=== PATIENT | female | born 1985 | race Caucasian/White ===

== ENCOUNTER 2019-05-02 10:45 | Emergency (ER) | payer OTHER, SELFPAY ==
[2019-05-02] MEDS ORDERED: Acetaminophen 500 MG TAB ONE (13:02)
[2019-05-02 13:16] LABS: Bilirubin Negative (Negative); Blood, Urine Negative (Negative); Clarity Clear (Clear); Glucose, Urine (Dipstick) Normal (Negative); Leukocyte Negative Leu/uL (Negative); Nitrite Negative (Negative); Protein, Urine (Dipstick) Negative (Neg-Trace); Urobilinogen Normal mg/dL (Less than 2)
[2019-05-02 13:17] LABS: Pregnancy Test - Urine (BHCG) Negative (Negative); Pregu Control Background? CLEAR/WHITE (CLR/WHITE); Pregu Control Bar Appear? YES (CONTROL BAR); Specific Gravity 1.009 (1.002-1.036)
[2019-05-02] MEDS ORDERED: Cyclobenzaprine 10 MG TAB ONE (13:35)
[2019-05-02] MEDS ORDERED: Ibuprofen 200 MG TAB ONE (13:35)
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
== END 2019-05-02 14:41 | disposition home or self-care (01) ==
LOC: ERS 10:45
DX: S16.1XXA Strain of muscle, fascia and tendon at neck level, initial encounter (principal); M54.6 Pain in thoracic spine; I10 Essential (primary) hypertension; K21.9 Gastro-esophageal reflux disease without esophagitis; G43.909 Migraine, unspecified, not intractable, without status migrainosus; F41.9 Anxiety disorder, unspecified; F32.9 Major depressive disorder, single episode, unspecified; Z79.899 Other long term (current) drug therapy; V43.52XA Car driver injured in collision with other type car in traffic accident, initial encounter
CPT/HCPCS: 72125; 72128; 81003; 81025